=== PATIENT | female | born 1970 | race Caucasian/White ===

== ENCOUNTER 2017-03-01 08:29 | Day surgery (SDC) | payer MEDICAID ==
[~2017-03-01] VITALS: Ht 160 cm; Wt 83.5 kg
--- NOTE | ~2017-03-01 | OP ---
PATIENT NAME: JACOB KIRBY MEDICAL RECORD: [id number] :68 LOCATION:D.OPS ADMISSION DATE: SURGEON: FRANCISCO KELLY MD DATE OF OPERATION: 03/01/2017 PREOPERATIVE DIAGNOSES: 1. Bleeding internal hemorrhoids. 2. Chronic obstructive pulmonary disease. 3. Obstructive sleep apnea. 4. Asthma. 5. Gastroesophageal reflux disease. 6. Tobacco dependence syndrome. POSTOPERATIVE DIAGNOSES: 1. Bleeding internal hemorrhoids. 2. Chronic obstructive pulmonary disease. 3. Obstructive sleep apnea. 4. Asthma. 5. Gastroesophageal reflux disease. 6. Tobacco dependence syndrome. PROCEDURE: PPH stapled hemorrhoidectomy. SURGEON: Francisco Kelly MD REPORT OF PROCEDURE: The patient was placed in the jackknife prone position and the perianal region was prepped and draped in sterile fashion. An anoscope was inserted and a 360 degree inspection was performed. The patient had some small mixed internal and external hemorrhoids. The patient had no sign of any masses, lesions or fissures. No fistulous tracts were noted. The PPH anoscope was inserted and sutured down on all 4 sides using interrupted 3-0 silks. The 2-0 Prolene was used to make a pursestring inside the rectum. The stapler was then inserted and fired, removing a nice collection of tissue. We checked the stapler prior to firing and made sure there was no sign of any backwalling of the patient's vaginal wall. There was one area of bleeding, which was oversewn with a 2-0 chromic on the anterior aspect. At this point, there was no sign of any bleeding. We then irrigated out the rectum with normal saline and packed it with Gelfoam dipped in [place]. COMPLICATIONS: None. CONDITION: Stable. ANESTHESIA: General endotracheal. BLOOD LOSS: Minimal. TRANSINT:[id number] Voice Confirmation ID: [id number] DOCUMENT ID: [id number] OPERATIVE REPORT [id number] KOFIJACOB LONGO FRANCISCO KELLY MD CC: RONNIE POSADA MD [id number] DICTATION DATE: 03/01/17 1326 IMPRESSION PRINTER: [id number]/01/[id number] [facility] 03/01/[address] [facility] [address] [place] [address]
[~2017-03-01 08:29] MED LIST: K-DUR20 MEQ PO; KLONOPIN1 MG PO; LATUDA40 MG PO; NEURONTIN 300300 MG PO; NORCO 7.5/325 T1 TA1 PO; PROTONIX40 MG PO; PROZAC20 MG PO; ROBAXIN500 MG PO; TRAZODONE HCL150 MG PO; TRIAMTERENE-HCT1 TA1 PO; ULTRAM50 MG PO; VICTOZA0.6 MG/0.1 SQ; ZYRTEC10 MG PO
[2017-03-01 09:13] LABS: BASOPHILS 0.3 % (0-2); HEMATOCRIT 45.7 % (36.0-48.0); HEMOGLOBIN 16.1 g/dL (12-16); IMMATURE GRANULOCYTES 0.3 % (0-5); LYMPHOCYTES 29.2 % (15-50); MCH 34.3 pg (26.0-34.0); MCHC 35.2 g/dL (31.0-37.0); MCV 97.4 fL (80.0-100.0); MEAN PLATELET VOLUME 10.2 fL (7.4-10.4); MONOCYTES 7.8 % (2-11); NEUTROPHILS 58.4 % (40-80); PLATELET COUNT 256 10x3/uL (130-400); RBC 4.69 10x6/uL (4.00-5.40); RDW 12.3 % (11.5-14.5); WBC 10.3 10x3/uL (4.8-10.8)
[2017-03-01 09:20] LABS: ANION GAP 7.8 mmol/L (8-16); CALCIUM 9.5 mg/dL (8.5-10.1); CARBON DIOXIDE 36.8 mmol/L (21.0-32.0); CREATININE - SERUM 1.7 mg/dL (0.6-1.3)
[2017-03-01 09:26] LABS: POTASSIUM - SERUM 2.6 mmol/L (3.5-5.1)
[2017-03-01 09:28] VITALS: BP 92/61; Ht 160 cm; Wt 83.5 kg
[2017-03-01] MEDS ORDERED: HYDROCODONE-APA1 TAB PO (13:23)
--- NOTE | 2017-03-01 14:26 | NUR ---
[address] ESTRADA AND PATIENT TO GET 30 MEQ MORE POTASSIUM IV RIDER AND STATED WE COULD CHANGE TO ELIXIR INSTEAD OF IV.
--- NOTE | 2017-03-01 14:52 | NUR ---
1442 TOOK IN POTASSIUM UNABLE TO URINATE.
--- NOTE | 2017-03-01 19:14 | NUR ---
1430 REPORT FROM CHRYSTAL MANN R.N. RESP EVEN AND NONLABORED VERY SLEEPY IV VIA IJ RT NECK DRESSING C/D/I NO REDNESS OR SWELLING.
--- NOTE | 2017-03-01 19:21 | NUR ---
1630 IV DCD CATHETER INTACT. UP AND VOIDED. WENT OVER DISCHARGE INSTRUCTIONS AND VERBALLY UNDERSTANDS.
--- NOTE | 2017-03-01 19:22 | NUR ---
1645 DISCHARGED TO HOME VIA W/C WITH FRIEND.
== END 2017-03-01 16:45 | disposition home or self-care (01) ==
LOC: D.OPS 08:29
PROVIDERS: Surgery
DX: K64.8 Other hemorrhoids (principal); K64.4 Residual hemorrhoidal skin tags; J44.9 Chronic obstructive pulmonary disease, unspecified; G47.33 Obstructive sleep apnea (adult) (pediatric); K21.9 Gastro-esophageal reflux disease without esophagitis; F17.200 Nicotine dependence, unspecified, uncomplicated

== ENCOUNTER → 2018-04-21 08:00 | Outpatient (CLI) | payer MEDICAID ==
[2017-03-01 09:28] VITALS: BMI 32.6
[~2018-04-21 08:00] MED LIST changes: +HYDROCODONE-APA1 TAB PO
== END | disposition home or self-care (01) ==
LOC: D.MAMMO 08:00
DX: Z12.31 Encounter for screening mammogram for malignant neoplasm of breast (principal)

== ENCOUNTER 2021-02-01 13:15 | Outpatient (CLI) | payer MEDICAID ==
[2017-03-01 09:28] VITALS: BMI 32.6
== END 2021-02-01 23:59 | disposition home or self-care (01) ==
LOC: D.MAMMO 13:15
PROVIDERS: ATTEND Nurse Practitioner Family
DX: Z12.31 Encounter for screening mammogram for malignant neoplasm of breast (principal)